=== PATIENT | female | born 1945 | race Caucasian/White ===

== ENCOUNTER 2016-10-20 10:05 | Inpatient (IN) | payer MEDICARE, MEDICAID ==
[~2016-10-20] VITALS: Ht 154.9 cm; Wt 78.3 kg
[~2016-10-20 10:05] MED LIST: AMLO-511 PO; CIPR-278 PO; DULO30CA2 PO; METF500T4 PO; QUET100T33 PO
[2016-10-20] MEDS ORDERED: LEVO250 PO (10:20)
[2016-10-20] MEDS ORDERED: HYDR-309 PO (10:20)
[2016-10-20 10:22] LABS: GLUCOSE,POINT OF CARE 155 MG/DL (70-110)
[2016-10-20] MEDS ORDERED: GABA-531 PO (10:23)
[2016-10-20] MEDS ORDERED: FURO20 PO (10:23)
[2016-10-20] MEDS ORDERED: METO50 PO (10:23)
[2016-10-20] MEDS ORDERED: SPIR50 PO (10:23)
[2016-10-20 11:00] LABS: BASOPHILS % (AUTO) 0.2 % (0.0-2.0); EOSINOPHILS % (AUTO) 0.3 % (1.0-6.0); HEMATOCRIT 45.3 % (36-46); HEMOGLOBIN 15.2 g/dL (12.0-16.0); LYMPHOCYTES # (AUTO) 1.8 K/uL (1.0-4.8); LYMPHOCYTES % (AUTO) 20.8 % (22.0-44.0); MEAN CORPUSCULAR HEMOGLOBIN 31.7 pg (26.0-34.0); MEAN CORPUSCULAR HGB CONC 33.5 G/dL (31.0-37.0); MEAN CORPUSCULAR VOLUME 95 fL (80-100); MONOCYTES # (AUTO) 0.2 K/uL (0.1-1.0); MONOCYTES % (AUTO) 2.4 % (2.0-9.0); NEUTROPHILS # (AUTO) 6.7 K/uL (1.8-7.7); NEUTROPHILS % (AUTO) 76.3 % (40.0-70.0); PLATELET COUNT (AUTO) 93 K/uL (150-450); RED BLOOD CELL COUNT(AUTO) 4.78 MIL/uL (4.00-5.20); WHITE BLOOD COUNT (AUTO) 8.8 K/uL (4.5-11.0)
[2016-10-20 11:15] LABS: ANION GAP 13 mmol/L (8-16); CARBON DIOXIDE 24 mmol/L (22-29); CHLORIDE 104 mmol/L (98-107); CREATININE 0.43 mg/dL (0.60-1.30); GLOMERULAR FILTR. RATE CALC > 60 mL/min (>60); POTASSIUM 4.1 mmol/L (3.5-5.1); SODIUM SERUM 141 mmol/L (136-145); UREA NITROGEN, BLOOD 17 mg/dL (7-18)
[2016-10-20 11:21] LABS: ALANINE AMINOTRANSFERASE 61 U/L (12-78); ALBUMIN 4.4 g/dL (3.4-5.0); ASPARTATE AMINOTRANSFERASE 59 U/L (15-37); BILIRUBIN,TOTAL 2.1 mg/dL (0.1-1.0); TOTAL PROTEIN, SERUM 7.7 g/dL (6.4-8.2)
[2016-10-20] MEDS ORDERED: LORazepam 2 MG TABLET PO ONE (14:30)
[2016-10-20 16:17] LABS: APPEARANCE,URINE CLEAR (CLEAR); GLUCOSE, URINE (UA) NEGATIVE (NEGATIVE); KETONES,URINE 40 mg/dL (NEGATIVE); LEUKOCYTE ESTERASE ,URINE NEGATIVE (NEGATIVE); OCCULT BLOOD,URINE NEGATIVE (NEGATIVE); PROTEIN,URINE NEGATIVE (NEGATIVE)
[2016-10-20 16:20] LABS: ADD UA MICROSCOPIC NO
[2016-10-20] MEDS ORDERED: ZOLPIDEM TARTRATE 10 MG TABLET PO PRN (17:00)
[2016-10-20] MEDS ORDERED: LORazepam 2 MG TABLET PO PRN (17:00)
[2016-10-20] MEDS ORDERED: HALOPERIDOL 5 MG TABLET PO PRN (17:00)
[2016-10-20 21:15] VITALS: BP 144/80
[2016-10-20] MEDS ORDERED: DEXTROSE 50%-WATER 25 GM/50 ML SYRINGE IVP PRN (21:15)
[2016-10-20] MEDS: CIPROFLOXACIN HCL 500 MG TABLET PO SCH (21:55)
[2016-10-21 05:31] LABS: GLUCOSE,POINT OF CARE 129 MG/DL (70-110)
[2016-10-21 08:29] VITALS: BP 126/66
[2016-10-21] MEDS: DONEPEZIL HCL 5 MG TABLET PO SCH (08:34)
[2016-10-21] MEDS: CIPROFLOXACIN HCL 500 MG TABLET PO SCH ×2 (08:34→17:51)
[2016-10-21] MEDS: RisperiDONE 0.5 MG TABLET PO SCH ×2 (08:34→17:52)
[2016-10-21] MEDS ORDERED: IBUPROFEN 400 MG TABLET PO PRN (11:30)
[2016-10-21] MEDS ORDERED: ACETAMINOPHEN 325 MG TABLET PO PRN (11:30)
[2016-10-21] MEDS: METOPROLOL TARTRATE 50 MG TABLET PO SCH (17:51)
[2016-10-21] MEDS: MetFORMIN HCL 500 MG TABLET PO SCH (17:51)
[2016-10-21 18:08] VITALS: BP 122/66
[2016-10-22 05:32] LABS: GLUCOSE,POINT OF CARE 101 MG/DL (70-110)
[2016-10-22] MEDS: MetFORMIN HCL 500 MG TABLET PO SCH ×2 (06:47→16:37)
[2016-10-22 07:25] LABS: HEMOGLOBIN A1C 5.8 % (4.5-6.2)
[2016-10-22 07:29] LABS: THYROID STIMULATING HORMONE 1.45 uIU/mL (0.36-3.74)
[2016-10-22] MEDS: METOPROLOL TARTRATE 50 MG TABLET PO SCH ×2 (08:51→16:37)
[2016-10-22] MEDS: SPIRONOLACTONE 50 MG TABLET PO SCH (08:51)
[2016-10-22] MEDS: RisperiDONE 0.5 MG TABLET PO SCH ×2 (08:52→16:36)
[2016-10-22] MEDS: FUROSEMIDE 20 MG TABLET PO SCH (08:52)
[2016-10-22] MEDS: CIPROFLOXACIN HCL 500 MG TABLET PO SCH ×2 (08:52→16:37)
[2016-10-22] MEDS: DONEPEZIL HCL 5 MG TABLET PO SCH (08:52)
[2016-10-22] MEDS: AmLODIPine BESYLATE 5 MG TABLET PO SCH (08:53)
[2016-10-22 09:23] VITALS: BP 117/60
[2016-10-22 19:58] VITALS: BP 115/75
[2016-10-23 06:07] LABS: GLUCOSE,POINT OF CARE 174 MG/DL (70-110)
[2016-10-23] MEDS: MetFORMIN HCL 500 MG TABLET PO SCH ×2 (06:38→16:46)
[2016-10-23 06:45] VITALS: BP 120/72
[2016-10-23] MEDS: INSULIN ASPART 100 UNITS/ML SQ PRN ×2 (07:09→17:06)
[2016-10-23 08:00] VITALS: BP 128/75
[2016-10-23] MEDS: CIPROFLOXACIN HCL 500 MG TABLET PO SCH ×2 (08:59→16:43)
[2016-10-23] MEDS: AmLODIPine BESYLATE 5 MG TABLET PO SCH (08:59)
[2016-10-23] MEDS: SPIRONOLACTONE 50 MG TABLET PO SCH (08:59)
[2016-10-23] MEDS: METOPROLOL TARTRATE 50 MG TABLET PO SCH ×2 (09:00→16:44)
[2016-10-23] MEDS: RisperiDONE 0.5 MG TABLET PO SCH ×2 (09:00→16:46)
[2016-10-23] MEDS: FUROSEMIDE 20 MG TABLET PO SCH (09:01)
[2016-10-23] MEDS: DONEPEZIL HCL 5 MG TABLET PO SCH (09:01)
[2016-10-23 16:03] VITALS: BP 135/64
[2016-10-24 05:21] LABS: GLUCOSE,POINT OF CARE 149 MG/DL (70-110)
[2016-10-24] MEDS: INSULIN ASPART 100 UNITS/ML SQ PRN (06:32)
[2016-10-24] MEDS: MetFORMIN HCL 500 MG TABLET PO SCH (06:47)
[2016-10-24 06:50] VITALS: BP 123/71
[2016-10-24] MEDS: DONEPEZIL HCL 5 MG TABLET PO SCH (08:16)
[2016-10-24] MEDS: SPIRONOLACTONE 50 MG TABLET PO SCH (08:16)
[2016-10-24] MEDS: RisperiDONE 0.5 MG TABLET PO SCH (08:16)
[2016-10-24] MEDS: METOPROLOL TARTRATE 50 MG TABLET PO SCH (08:16)
[2016-10-24] MEDS: AmLODIPine BESYLATE 5 MG TABLET PO SCH (08:16)
[2016-10-24] MEDS: FUROSEMIDE 20 MG TABLET PO SCH (08:16)
[2016-10-24] MEDS: CIPROFLOXACIN HCL 500 MG TABLET PO SCH (08:16)
[2016-10-24 08:30] VITALS: BP_SYST 126
[2016-10-24 18:30] VITALS: BP 121/70
[2016-10-25 05:51] LABS: GLUCOSE COMMENT 1 Received Meds; GLUCOSE,POINT OF CARE 189 MG/DL (70-110)
[2016-10-25] MEDS: MetFORMIN HCL 500 MG TABLET PO SCH ×2 (06:52→16:04)
[2016-10-25] MEDS: INSULIN ASPART 100 UNITS/ML SQ PRN ×2 (07:13→17:17)
[2016-10-25 08:00] VITALS: BP 163/75
[2016-10-25] MEDS: CIPROFLOXACIN HCL 500 MG TABLET PO SCH ×3 (08:09→16:04)
[2016-10-25] MEDS: DONEPEZIL HCL 5 MG TABLET PO SCH (08:09)
[2016-10-25] MEDS: FUROSEMIDE 20 MG TABLET PO SCH (08:09)
[2016-10-25] MEDS: RisperiDONE 0.5 MG TABLET PO SCH ×3 (08:11→16:05)
[2016-10-25] MEDS: AmLODIPine BESYLATE 5 MG TABLET PO SCH (08:11)
[2016-10-25] MEDS: METOPROLOL TARTRATE 50 MG TABLET PO SCH ×3 (08:12→16:05)
[2016-10-25] MEDS: SPIRONOLACTONE 50 MG TABLET PO SCH (08:13)
[2016-10-25 17:08] VITALS: BP 123/78
[2016-10-26 05:26] LABS: GLUCOSE,POINT OF CARE 141 MG/DL (70-110)
[2016-10-26 06:20] VITALS: BP 127/72
[2016-10-26] MEDS: MetFORMIN HCL 500 MG TABLET PO SCH (06:58)
[2016-10-26] MEDS: INSULIN ASPART 100 UNITS/ML SQ PRN (06:59)
[2016-10-26 08:15] VITALS: BP 129/77
[2016-10-26] MEDS: CIPROFLOXACIN HCL 500 MG TABLET PO SCH (09:18)
[2016-10-26] MEDS: FUROSEMIDE 20 MG TABLET PO SCH (09:18)
[2016-10-26] MEDS: SPIRONOLACTONE 50 MG TABLET PO SCH (09:18)
[2016-10-26] MEDS: DONEPEZIL HCL 5 MG TABLET PO SCH (09:18)
[2016-10-26] MEDS: RisperiDONE 0.5 MG TABLET PO SCH (09:19)
[2016-10-26] MEDS: METOPROLOL TARTRATE 50 MG TABLET PO SCH (09:19)
[2016-10-26] MEDS: AmLODIPine BESYLATE 5 MG TABLET PO SCH (09:27)
[2016-10-29] MEDS ORDERED: RISP.5 PO (16:04)
[2016-10-29] MEDS ORDERED: DONE5TAB PO (16:06)
[2016-11-20 11:07] LABS: GLUCOSE,POINT OF CARE 116 MG/DL (70-110)
[2016-11-20 11:07] LABS: GLUCOSE COMMENT 1 Received Meds; GLUCOSE,POINT OF CARE 109 MG/DL (70-110)
== END 2016-10-26 15:00 | disposition home or self-care (01) | DRG 885 ==
LOC: EMS 10:08 → 3EX 17:02
PROVIDERS: ADMIT Psychiatry & Neurology Psychiatry; ATTEND Psychiatry & Neurology Psychiatry
DX: F29 Unspecified psychosis not due to a substance or known physiological condition (principal); F02.81 Dementia in other diseases classified elsewhere, unspecified severity, with behavioral disturbance; N39.0 Urinary tract infection, site not specified; G30.9 Alzheimer's disease, unspecified; F20.0 Paranoid schizophrenia; E11.9 Type 2 diabetes mellitus without complications; F43.10 Post-traumatic stress disorder, unspecified; I51.9 Heart disease, unspecified; I50.9 Heart failure, unspecified; I11.0 Hypertensive heart disease with heart failure; R74.0 Nonspecific elevation of levels of transaminase and lactic acid dehydrogenase [LDH]; F32.9 Major depressive disorder, single episode, unspecified; Z91.14 Patient's other noncompliance with medication regimen; Z79.899 Other long term (current) drug therapy; Z79.2 Long term (current) use of antibiotics; Z79.891 Long term (current) use of opiate analgesic; Z79.84 Long term (current) use of oral hypoglycemic drugs; Z87.440 Personal history of urinary (tract) infections
CPT/HCPCS: 82607; 82746; 82962; 83036; 84443; 97161; 97165; 97535; 99285; G0480